=== PATIENT | male | born 1970 | race Caucasian/White ===

== ENCOUNTER 2016-10-20 16:09 | Emergency (ER) | payer OTHER ==
[2016-10-20] MEDS ORDERED: PROPARACAINE HCL 0.5% 300 GTTS/BOT SOLN.DROP ONE (16:33)
== END 2016-10-20 17:14 | disposition home or self-care (01) ==
LOC: ED 16:09
DX: T15.02XA Foreign body in cornea, left eye, initial encounter (principal); X58.XXXA Exposure to other specified factors, initial encounter
CPT/HCPCS: 99283 ×2; 65222 ×2; A9270